=== PATIENT | male | born 1995 | race Caucasian/White ===

== ENCOUNTER 2018-12-08 11:40 | Emergency (ER) | payer BC ==
[~2018-12-08] VITALS: Ht 180.3 cm; Wt 81.7 kg
[~2018-12-08 11:40] MED LIST: AMOXICILLIN 50500 M1 PO; NOHOMEMEDICATIONS
[2018-12-08 12:31] LABS: ABSOLUTE BASOPHILS 0.1 thou/uL (0.0-0.2); ABSOLUTE EOSINOPHILS 0.2 thou/uL (0.0-0.7); ABSOLUTE MONOCYTES 0.9 thou/uL (0.0-1.2); ABSOLUTE NEUTROPHILS 6.4 thou/uL (1.6-8.1); BASOPHILS 0.7 %; EOSINOPHILS 2.6 %; HEMOGLOBIN 15.3 gm/dL (14.0-18.0); LYMPHOCYTES 11.4 %; MCH 32.2 pg (26.0-34.0); MCHC 35.6 g/dL (28.0-37.0); MCV 90.4 fL (80.0-100.0); MONOCYTES 10.3 %; MPV 8.8 fl. (7.2-11.1); NUCLEATED RBCS 0 /100WBC; PLATELET COUNT* 347 thou/uL (150-400); RBC 4.75 mil/uL (4.50-6.00); RDW-CV 13.3 % (10.5-14.5); WBC 8.5 thou/uL (4.0-11.0)
[2018-12-08 12:34] LABS: URINE BILIRUBIN NEGATIVE (Negative); URINE BLOOD NEGATIVE (Negative); URINE CLARITY CLEAR; URINE COLOR YELLOW; URINE GLUCOSE-RANDOM NEGATIVE (Negative); URINE KETONES NEGATIVE (Negative); URINE LEUKOCYTES-REFLEX NEGATIVE (Negative); URINE NITRITE-REFLEX NEGATIVE (Negative); URINE PROTEIN NEGATIVE (Negative); URINE UROBILINOGEN 0.2 E.U./dl (0.2-1.0)
[2018-12-08 12:42] LABS: INFLUENZA A ANTIGEN None Detected (None Detect); INFLUENZA B ANTIGEN None Detected (None Detect)
[2018-12-08 12:47] LABS: ALBUMIN 3.2 g/dL (3.4-5.0); CALCIUM 8.5 mg/dL (8.5-10.1); POTASSIUM 3.7 mmol/L (3.5-5.1); TOTAL BILIRUBIN 0.3 mg/dL (<0.1-1.0); TOTAL PROTEIN 7.3 g/dL (6.4-8.2)
[2018-12-08] MEDS ORDERED: KEFLEX500 M1 PO (14:53)
[2018-12-08] MEDS ORDERED: IBUPROFEN 600600 M1 PO (14:53)
[2018-12-08 14:59] VITALS: BP 110/53
== END 2018-12-08 15:00 | disposition home or self-care (01) ==
LOC: M.ERS 11:40
PROVIDERS: Physician Assistant
DX: R50.9 Fever, unspecified (principal); R10.32 Left lower quadrant pain; R06.02 Shortness of breath; R51 Headache; Z88.1 Allergy status to other antibiotic agents

== ENCOUNTER 2018-12-13 06:54 | Emergency (ER) | payer BC ==
[~2018-12-13] VITALS: Ht 180.3 cm; Wt 79.4 kg
[~2018-12-13 06:54] MED LIST changes: +IBUPROFEN 600600 M1 PO; +KEFLEX500 M1 PO
[2018-12-13] MEDS ORDERED: KEFLEX500 M1 PO (07:11)
[2018-12-13] MEDS ORDERED: LIDOCAINE VISC100 ML BUCCAL (07:11)
[2018-12-13] MEDS ORDERED: DOXYCYCLINE 10100 M1 PO (07:11)
[2018-12-13] MEDS ORDERED: HYDROCODON-ACE1 EAC7 PO (07:11)
[2018-12-13 07:23] VITALS: BP 110/87
== END 2018-12-13 07:23 | disposition home or self-care (01) ==
LOC: M.ERS 06:54
DX: K12.1 Other forms of stomatitis (principal); A74.9 Chlamydial infection, unspecified; Z88.1 Allergy status to other antibiotic agents